=== PATIENT | male | born 1985 | race Caucasian/White ===

== ENCOUNTER 2023-01-06 08:50 | Emergency (ER) | payer OTHER ==
[2023-01-06] MEDS ORDERED: Ketorolac 30 MG/ML SDV IM ONE (09:55)
== END 2023-01-06 10:31 | disposition home or self-care (01) ==
LOC: JP.ED 08:50
DX: S22.42XA Multiple fractures of ribs, left side, initial encounter for closed fracture (principal); F17.210 Nicotine dependence, cigarettes, uncomplicated; W11.XXXA Fall on and from ladder, initial encounter
CPT/HCPCS: 71250; 96372; 99283; J1885